=== PATIENT | male | born 1990 | race Caucasian/White ===

== ENCOUNTER 2018-09-15 23:52 | Emergency (ER) | payer MEDICAID, SELFPAY ==
[2018-09-15 23:55] VITALS: BP 133/82; PULSE 92; RESP 20; TEMP 36.8; O2SAT 95
--- NOTE | 2018-09-16 00:04 | W.ED.GENAD ---
Discharge Plan Disposition Patient Disposition: HOME Condition: Improving Discharge Details Chief Complaint: GI Bleed Clinical Impression: Acute bronchitis Reason For Visit: LACI Primary Care Provider: Andrei Arana ED Provider: Vaibhav Orozco Home Meds and New Rx's Prescriptions: New sulfamethoxazole-trimethoprim [Bactrim DS] 800-160 mg tablet 160 mg PO BID 7 Days Qty: 14 RF: 0 No Action methylphenidate HCl [Ritalin] 20 MG tablet 20 mg PO BID RF: 0 ibuprofen 600 MG tablet 600 mg PO Q6H PRN (Reason: Pain) Qty: 20 RF: 0 methylphenidate HCl 10 mg Tablet 10 mg PO HS RF: 0 Discharge Instructions Instructions: Acute Bronchitis (ED) Additional Instructions: Home to rest tonight. Begin antibiotic prescription tomorrow morning, you are given a first dose tonight. May use Zofran, if needed for nausea. Small, frequent sips of fluids to maintain hydration Return to the emergency room for any acute concerns. Continue your efforts to decrease use of cigarettes Medical Decision Making 19-year-old male with 2 weeks of generalized malaise and cough with congestion. He had episode of posttussive emesis with bloody tinged sputum this evening which prompted a call to 911 and transport via EMS. He arrives afebrile, with normal oxygenation, note of high resting pulse but otherwise exam is notable for right-sided rhonchi. Differential diagnosis in this young man includes influenza type illness, bronchitis, pneumonia. CBC review reveals a white blood cell count of 7, hematocrit 44, platelets 246. Chemistries unremarkable. Chest x-ray without focal infiltrate. Given the patient's ongoing abuse of tobacco, I elected to treat him with a course of Bactrim for acute bronchitis. He stable and improved, appropriate for discharge to home Lab Data Lab results reviewed: Yes I reviewed the patient's lab results. Laboratory Tests Range/Units 09/16/18 09/16/18 00:10 00:10 WBC (4.4-10.8) k/cumm 7.11 RBC (4.50-6.00) m/cumm 5.23 Hgb (13.5-17.5) g/dL 16.0 Hct (40.0-50.0) % 44.6 MCV (80-95) fL 85.3 MCH (27.0-33.0) pg 30.6 MCHC (32.0-36.0) g/dL 35.9 RDW (11.8-14.1) % 12.3 Plt Count (130-400) x1000/uL 246 MPV (8.0-11.0) fL 9.3 Immature Gran % 0.1 Neutrophils % 51.1 Lymphocytes % 29.0 Monocytes % 13.8 Eosinophils % 5.6 Basophils % 0.4 Absolute Neutrophils (1.2-6.7) k/cumm 3.63 Absolute Lymphocytes (1.2-3.4) k/cumm 2.06 Absolute Monocytes (0.11-0.7) k/cumm 0.98 H Absolute Eosinophils (0.0-0.7) k/cumm 0.40 Absolute Basophils (0.0-0.2) k/cumm 0.03 Sodium (136-145) mmol/L 138 Potassium (3.5-5.1) mmol/L 3.2 L Chloride (98-107) mmol/L 102 Carbon Dioxide (21.0-32.0) mmol/L 27.4 Anion Gap (3-11) mmol/L 8.6 BUN (7-18) mg/dL 13 Creatinine (0.70-1.30) mg/dL 0.89 Estimated GFR/1.73 m2 (mL/min/1.73m2) >= 60.00 Glucose (70-100) mg/dL 110 H Calcium (8.5-10.1) mg/dL 8.8 HPI General Mode of arrival: ambulatory. Date/Time Provider Initiated Documentation: 09/15/18 23:57. Limitations to Documentation: no limitations. Information obtained by: patient and EMS. History of Present Illness 27 year old M presents to the emergency department with the chief complaint of Cough, congestion, malaise, vomiting, described as moderate, Quality is described as dull and constant, and is localized to the chest. Patient reports no radiation. Patient started experiencing this day(s) and it has been constant. No relieving factors improve symptom(s), No exacerbating factors reported . Patient notes cough, diaphoresis, fever/chills, loss of appetite, malaise and nausea/vomiting; denies chest pain. HPI Narrative: 27-year-old male smoker presents from home with approximately 2 weeks of generalized malaise with associated cough, congestion, production of sputum. Tonight , he says he spit out of bloody mucus. He denies any persistent vomiting. Is not had abdominal pain. No dark or bloody stool. Related Data Home Medications Medication Instructions Recorded Confirmed ibuprofen 600 mg PO Q6H PRN #20 tab 11/08/17 09/15/18 methylphenidate HCl [Ritalin] 20 mg PO BID 11/08/17 09/15/18 methylphenidate HCl 10 mg PO HS 09/15/18 09/15/18 sulfamethoxazole-trimethoprim 160 mg PO BID 7 Days #14 tab 09/16/18 [Bactrim DS] Previous Rx's Medication Instructions Recorded ibuprofen 600 mg PO Q6H PRN #20 tab 11/08/17 sulfamethoxazole-trimethoprim 160 mg PO BID 7 Days #14 tab 09/16/18 [Bactrim DS] Allergies Allergy/AdvReac Type Severity Reaction Status Date / Time clindamycin Allergy Unknown Unverified 09/15/18 23:58 Penicillins Allergy Unverified 09/15/18 23:58 General Stated Complaint: GI Bleed LIANNA: 3 Review of Systems Review of Systems 8 systems reviewed and otherwise negative PFS Social History Smoking/Tobacco Use Status: Current every day Exam Narrative Exam Narrative: GEN: awake, alert, oriented 3. Pleasant, well groomed, interactive. HEAD: Normocephalic, atraumatic ENT: Mucous membranes moist, oropharynx unremarkable, External ear exam unremarkable EYES: PERRL, EOMI NECK: Full ROM, no ANTONIETA, no menigismus CHEST/RESP: Nontender, right upper posterior chest with few rhonchi, no wheeze/rales CARDIOVASCULAR: RRR, no murmur, rub ar. 2+ Rad pulse bilateral ABDOMEN: Soft, nontender, no mass. +Bowel sounds EXT: Full ROM, no edema, no rash Neuro: Grossly normal neurologic exam, conversant, interactive. Psych: Speech fluent, thoughts congruent, affect normal Course Vital Signs Temperature 36.8 C 09/15/18 23:55 Pulse 92 H 09/15/18 23:55 Respiratory Rate 20 09/15/18 23:55 Blood Pressure 133/82 09/15/18 23:55 Pulse Oximetry 95 09/15/18 23:55 Temperature 36.8 C 09/15/18 23:55 Temperature Source Temporal Artery Scan 09/15/18 23:55 Pulse 92 H 09/15/18 23:55 Respiratory Rate 20 09/15/18 23:55 Respiratory Effort Non-Labored 09/15/18 23:55 Blood Pressure 133/82 09/15/18 23:55 Blood Pressure Position Sitting 09/15/18 23:55 Pulse Oximetry 95 09/15/18 23:55 Oxygen Delivery Method Room Air 09/15/18 23:55 Oxygen Flow Rate 0 09/15/18 23:55 Pain Level 0 09/15/18 23:59
--- NOTE | 2018-09-16 00:07 | ED.GENADUL_ITS ---
Discharge Plan Disposition Patient Disposition: HOME Condition: Improving Discharge Details Chief Complaint: GI Bleed Clinical Impression: Acute bronchitis Reason For Visit: LACI Primary Care Provider: Andrei Arana ED Provider: Vaibhav Orozco Home Meds and New Rx's Prescriptions: New sulfamethoxazole-trimethoprim [Bactrim DS] 800-160 mg tablet 160 mg PO BID 7 Days Qty: 14 RF: 0 No Action methylphenidate HCl [Ritalin] 20 MG tablet 20 mg PO BID RF: 0 ibuprofen 600 MG tablet 600 mg PO Q6H PRN (Reason: Pain) Qty: 20 RF: 0 methylphenidate HCl 10 mg Tablet 10 mg PO HS RF: 0 Discharge Instructions Instructions: Acute Bronchitis (ED) Additional Instructions: Home to rest tonight. Begin antibiotic prescription tomorrow morning, you are given a first dose tonight. May use Zofran, if needed for nausea. Small, frequent sips of fluids to maintain hydration Return to the emergency room for any acute concerns. Continue your efforts to decrease use of cigarettes Medical Decision Making 19-year-old male with 2 weeks of generalized malaise and cough with congestion. He had episode of posttussive emesis with bloody tinged sputum this evening which prompted a call to 911 and transport via EMS. He arrives afebrile, with normal oxygenation, note of high resting pulse but otherwise exam is notable for right-sided rhonchi. Differential diagnosis in this young man includes influenza type illness, bronchitis, pneumonia. CBC review reveals a white blood cell count of 7, hematocrit 44, platelets 246. Chemistries unremarkable. Chest x-ray without focal infiltrate. Given the patient's ongoing abuse of tobacco, I elected to treat him with a course of Bactrim for acute bronchitis. He stable and improved, appropriate for discharge to home Lab Data Lab results reviewed: Yes I reviewed the patient's lab results. Laboratory Tests Range/Units 09/16/18 09/16/18 00:10 00:10 WBC (4.4-10.8) k/cumm 7.11 RBC (4.50-6.00) m/cumm 5.23 Hgb (13.5-17.5) g/dL 16.0 Hct (40.0-50.0) % 44.6 MCV (80-95) fL 85.3 MCH (27.0-33.0) pg 30.6 MCHC (32.0-36.0) g/dL 35.9 RDW (11.8-14.1) % 12.3 Plt Count (130-400) x1000/uL 246 MPV (8.0-11.0) fL 9.3 Immature Gran % 0.1 Neutrophils % 51.1 Lymphocytes % 29.0 Monocytes % 13.8 Eosinophils % 5.6 Basophils % 0.4 Absolute Neutrophils (1.2-6.7) k/cumm 3.63 Absolute Lymphocytes (1.2-3.4) k/cumm 2.06 Absolute Monocytes (0.11-0.7) k/cumm 0.98 H Absolute Eosinophils (0.0-0.7) k/cumm 0.40 Absolute Basophils (0.0-0.2) k/cumm 0.03 Sodium (136-145) mmol/L 138 Potassium (3.5-5.1) mmol/L 3.2 L Chloride (98-107) mmol/L 102 Carbon Dioxide (21.0-32.0) mmol/L 27.4 Anion Gap (3-11) mmol/L 8.6 BUN (7-18) mg/dL 13 Creatinine (0.70-1.30) mg/dL 0.89 Estimated GFR/1.73 m2 (mL/min/1.73m2) >= 60.00 Glucose (70-100) mg/dL 110 H Calcium (8.5-10.1) mg/dL 8.8 HPI General Mode of arrival: ambulatory . Date/Time Provider Initiated Documentation: 09/15/18 23:57 . Limitations to Documentation: no limitations . Information obtained by: patient and EMS . History of Present Illness 27 year old M presents to the emergency department with the chief complaint of Cough, congestion, malaise, vomiting, described as moderate, Quality is described as dull and constant, and is localized to the chest. Patient reports no radiation. Patient started experiencing this day(s) and it has been constant. No relieving factors improve symptom(s), No exacerbating factors reported . Patient notes cough, diaphoresis, fever/chills, loss of appetite, malaise and nausea/vomiting; denies chest pain. HPI Narrative: 27-year-old male smoker presents from home with approximately 2 weeks of generalized malaise with associated cough, congestion, production of sputum. Tonight , he says he spit out of bloody mucus. He denies any persistent vomiting. Is not had abdominal pain. No dark or bloody stool. Related Data Home Medications Medication Instructions Recorded Confirmed ibuprofen 600 mg PO Q6H PRN #20 tab 11/08/17 09/15/18 methylphenidate HCl [Ritalin] 20 mg PO BID 11/08/17 09/15/18 methylphenidate HCl 10 mg PO HS 09/15/18 09/15/18 sulfamethoxazole-trimethoprim 160 mg PO BID 7 Days #14 tab 09/16/18 [Bactrim DS] Previous Rx's Medication Instructions Recorded ibuprofen 600 mg PO Q6H PRN #20 tab 11/08/17 sulfamethoxazole-trimethoprim 160 mg PO BID 7 Days #14 tab 09/16/18 [Bactrim DS] Allergies Allergy/AdvReac Type Severity Reaction Status Date / Time clindamycin Allergy Unknown Unverified 09/15/18 23:58 Penicillins Allergy Unverified 09/15/18 23:58 General Stated Complaint: GI Bleed LIANNA: 3 Review of Systems Review of Systems 8 systems reviewed and otherwise negative PFS Social History Smoking/Tobacco Use Status: Current every day Exam Narrative Exam Narrative: GEN: awake, alert, oriented 3. Pleasant, well groomed, interactive. HEAD: Normocephalic, atraumatic ENT: Mucous membranes moist, oropharynx unremarkable, External ear exam unremarkable EYES: PERRL, EOMI NECK: Full ROM, no ANTONIETA, no menigismus CHEST/RESP: Nontender, right upper posterior chest with few rhonchi, no wheeze/ rales CARDIOVASCULAR: RRR, no murmur, rub ar. 2+ Rad pulse bilateral ABDOMEN: Soft, nontender, no mass. +Bowel sounds EXT: Full ROM, no edema, no rash Neuro: Grossly normal neurologic exam, conversant, interactive. Psych: Speech fluent, thoughts congruent, affect normal Course Vital Signs Temperature 36.8 C 09/15/18 23:55 Pulse 92 H 09/15/18 23:55 Respiratory Rate 20 09/15/18 23:55 Blood Pressure 133/82 09/15/18 23:55 Pulse Oximetry 95 09/15/18 23:55 Temperature 36.8 C 09/15/18 23:55 Temperature Source Temporal Artery Scan 09/15/18 23:55 Pulse 92 H 09/15/18 23:55 Respiratory Rate 20 09/15/18 23:55 Respiratory Effort Non-Labored 09/15/18 23:55 Blood Pressure 133/82 09/15/18 23:55 Blood Pressure Position Sitting 09/15/18 23:55 Pulse Oximetry 95 09/15/18 23:55 Oxygen Delivery Method Room Air 09/15/18 23:55 Oxygen Flow Rate 0 09/15/18 23:55 Pain Level 0 09/15/18 23:59
[2018-09-16 00:17] LABS: Abs Immature Grans 0.01 k/cumm (0.0-0.09); Absolute Basophil Count 0.03 k/cumm (0.0-0.2); Absolute Lymphocyte Count 2.06 k/cumm (1.2-3.4); Absolute Monocyte Count 0.98 k/cumm (0.11-0.7); Absolute Neutrophil Count 3.63 k/cumm (1.2-6.7); Basophils % 0.4; Eosinophils % 5.6; HCT 44.6 % (40.0-50.0); Immature Grans % 0.1; Mean Corp. HGB Concentration 35.9 g/dL (32.0-36.0); Mean Corpuscular Hemoglobin 30.6 pg (27.0-33.0); Mean Corpuscular Volume 85.3 fL (80-95); Mean Platelet Volume 9.3 fL (8.0-11.0); Monocytes % 13.8; Neutrophils % 51.1; Platelet Count 246 x1000/uL (130-400); RBC 5.23 m/cumm (4.50-6.00); RBC Distribution Width 12.3 % (11.8-14.1); White Blood Cell Count 7.11 k/cumm (4.4-10.8)
[2018-09-16] MEDS: Ketorolac 30 MG/ML VIAL IVP (00:17)
[2018-09-16] MEDS: Ondansetron 4 MG/2 ML VIAL IVP (00:17)
[2018-09-16] MEDS: Normal Saline 1,000 ML 1000 ML IV (00:17)
[2018-09-16 00:25] LABS: Anion Gap 8.6 mmol/L (3-11); BUN 13 mg/dL (7-18); CO2 27.4 mmol/L (21.0-32.0); CREATININE 0.89 mg/dL (0.70-1.30); Calcium 8.8 mg/dL (8.5-10.1); Chloride 102 mmol/L (98-107); Glucose 110 mg/dL (70-100); Potassium 3.2 mmol/L (3.5-5.1); Sodium 138 mmol/L (136-145)
--- NOTE | 2018-09-16 00:45 | DI.RAD_ITS ---
SYMPTOMS/DIAGNOSIS: COUGH FOR A FEW DAYS PA AND LATERAL CHEST: The heart is normal in size. The lungs are clear. The mediastinal structures and pleura appear intact. SUMMARY: Normal chest.
--- NOTE | 2018-09-16 01:11 | DI.VRAD_ITS ---
EXAM: XR Chest, 2 Views EXAM DATE/TIME: 09/16/2018 12:04 AM CLINICAL HISTORY: 27 years old, male; Signs and symptoms; Cough and other: Congestion TECHNIQUE: XR of the chest, 2 views. COMPARISON: No relevant prior studies available. FINDINGS: There are no old studies available for comparison. The lungs are clear of infiltrate. There are no pleural effusions or pneumothorax. The heart size and pulmonary vascularity are normal. IMPRESSION: No active disease. Dictated and Authenticated by: Kayden Mojica MD. Ordering:AMY DAN MD
[2018-09-16 06:38] VITALS: BP 133/82; PULSE 92; RESP 20; TEMP 36.8; O2SAT 95
== END 2018-09-16 01:20 | disposition home or self-care (01) ==
LOC: ER 09-16 01:23
PROVIDERS: Emergency Provider Emergency Medicine; PCP General Practice
DX: J20.9 Acute bronchitis, unspecified (principal)
CPT/HCPCS: 36415; 80048; 96374; 96375; 99284; 71046; 85025; J1885; J2405

== ENCOUNTER 2018-09-29 15:38 | Emergency (ER) | payer MEDICAID, SELFPAY ==
[2018-09-29 15:44] VITALS: BP 149/79; PULSE 82; RESP 18; TEMP 36.6; O2SAT 97
--- NOTE | 2018-09-29 15:45 | DI.RAD_ITS ---
SYMPTOM/DIAGNOSIS: LATERAL PAIN, FOOT PAIN. CAUGHT BY CHAIN RIGHT ANKLE: 09/29/18 Three views obtained. There is soft tissue swelling particularly adjacent to the lateral malleolus. The ankle mortise appears well maintained. No acute fracture seen.
--- NOTE | 2018-09-29 15:46 | W.ED.GENAD ---
Discharge Plan Disposition Patient Disposition: HOME Condition: Improving Discharge Details Chief Complaint: Orthopedic Clinical Impression: Contusion of ankle, right Reason For Visit: right ankle pain Primary Care Provider: Andrei Arana ED Provider: Vaibhav Orozco Home Meds and New Rx's Prescriptions: New hydrocodone-acetaminophen 5-325 mg tablet 1 tab PO Q6H PRN (Reason: pain, severe) Qty: 2 RF: 0 Continue methylphenidate HCl [Ritalin] 20 MG tablet 20 mg PO BID RF: 0 ibuprofen 600 MG tablet 600 mg PO Q6H PRN (Reason: Pain) Qty: 20 RF: 0 methylphenidate HCl 10 mg Tablet 10 mg PO HS RF: 0 Discharge Instructions Instructions: Contusion in Adults (ED) Additional Instructions: Please wear crutches and walking boot as needed, as discussed for 3-7 days time. If after 1 week you have persistent pain, please call the orthopedic office at [phone] for a follow-up appointment. Elevate leg above the level of the heart to reduce pain and swelling. Ibuprofen 800 mg every 6-8 hours as needed for pain. Take with food. May use the prescribed hydrocodone as needed for severe, breakthrough pain. Return to the emerge department for any acute concerns Medical Decision Making 19-year-old male presents with right ankle and foot pain and swelling after the R leg was caught with chain in the back of his truck. He did not suffer any other injury. Denies Knee/Hip/Back/Chest pain. Referred for XRay which reveals soft tissue swelling but no underlying bony inury. Consistent with sft tissue contusion/sprain. Will place in immobilization with crutches for prn use anticipated 5-7 days. If he has persistent pain, may consider followup with Orthopedics. HPI General Mode of arrival: wheelchair. Date/Time Provider Initiated Documentation: 09/29/18 15:39. Limitations to Documentation: no limitations. Information obtained by: patient. History of Present Illness 27 year old M presents to the emergency department with the chief complaint of Right ankle and foot pain, described as moderate, Quality is described as aching, and is localized to the right and lower extremity. Patient reports no radiation. Patient started experiencing this minute(s) and it has been constant. Cold therapy improves symptom(s), and Immobilization improves symptom(s), Movement worsens symptoms . Patient notes no other symptoms.. 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 He was not injured in any other way but reports the abrupt onset of right ankle and foot pain and swelling. No other injury Related Data Home Medications Medication Instructions Recorded Confirmed ibuprofen 600 mg PO Q6H PRN #20 tab 11/08/17 09/29/18 methylphenidate HCl [Ritalin] 20 mg PO BID 11/08/17 09/29/18 methylphenidate HCl 10 mg PO HS 09/15/18 09/15/18 hydrocodone-acetaminophen 1 tab PO Q6H PRN #2 tab 09/29/18 Previous Rx's Medication Instructions Recorded ibuprofen 600 mg PO Q6H PRN #20 tab 11/08/17 hydrocodone-acetaminophen 1 tab PO Q6H PRN #2 tab 09/29/18 Allergies Allergy/AdvReac Type Severity Reaction Status Date / Time clindamycin Allergy Unknown Unverified 09/29/18 15:48 Penicillins Allergy Unverified 09/29/18 15:48 General LIANNA: 3 Review of Systems Review of Systems 4 systems reviewed and otherwise negative Exam Narrative Exam Narrative: GEN: awake, alert, oriented 3. Pleasant, well groomed, interactive. HEAD: Normocephalic, atraumatic ENT: Mucous membranes moist, oropharynx unremarkable, External ear exam unremarkable EYES: PERRL, EOMI NECK: Full ROM, no ANTONIETA, no menigismus CHEST/RESP: Nontender, clear to auscultation bilateral, no wheeze/rhonchi/rales CARDIOVASCULAR: RRR, no murmur, rub ar. 2+ Rad pulse bilateral EXT: Motor is 5 out of 5 bilaterally. There is right lateral malleoli or tenderness to palp and swelling on exam. 2+ DP bilaterally. Sensation intact throughout Neuro: Grossly normal neurologic exam, conversant, interactive. Psych: Speech fluent, thoughts congruent, affect mildly anxious
[2018-09-29] MEDS: Ibuprofen 800 MG TAB PO (15:50)
--- NOTE | 2018-09-29 15:50 | ED.GENADUL_ITS ---
Discharge Plan Disposition Patient Disposition: HOME Condition: Improving Discharge Details Chief Complaint: Orthopedic Clinical Impression: Contusion of ankle, right Reason For Visit: right ankle pain Primary Care Provider: Andrei Arana ED Provider: Vaibhav Orozco Home Meds and New Rx's Prescriptions: New hydrocodone-acetaminophen 5-325 mg tablet 1 tab PO Q6H PRN (Reason: pain, severe) Qty: 2 RF: 0 Continue methylphenidate HCl [Ritalin] 20 MG tablet 20 mg PO BID RF: 0 ibuprofen 600 MG tablet 600 mg PO Q6H PRN (Reason: Pain) Qty: 20 RF: 0 methylphenidate HCl 10 mg Tablet 10 mg PO HS RF: 0 Discharge Instructions Instructions: Contusion in Adults (ED) Additional Instructions: Please wear crutches and walking boot as needed, as discussed for 3-7 days time. If after 1 week you have persistent pain, please call the orthopedic office at [phone] for a follow-up appointment. Elevate leg above the level of the heart to reduce pain and swelling. Ibuprofen 800 mg every 6-8 hours as needed for pain. Take with food. May use the prescribed hydrocodone as needed for severe, breakthrough pain. Return to the emerge department for any acute concerns Medical Decision Making 19-year-old male presents with right ankle and foot pain and swelling after the R leg was caught with chain in the back of his truck. He did not suffer any other injury. Denies Knee/Hip/Back/Chest pain. Referred for XRay which reveals soft tissue swelling but no underlying bony inury. Consistent with sft tissue contusion/sprain. Will place in immobilization with crutches for prn use anticipated 5-7 days. If he has persistent pain, may consider followup with Orthopedics. HPI General Mode of arrival: wheelchair . Date/Time Provider Initiated Documentation: 09/29/18 15:39 . Limitations to Documentation: no limitations . Information obtained by: patient . History of Present Illness 27 year old M presents to the emergency department with the chief complaint of Right ankle and foot pain, described as moderate, Quality is described as aching, and is localized to the right and lower extremity. Patient reports no radiation. Patient started experiencing this minute(s) and it has been constant. Cold therapy improves symptom(s), and Immobilization improves symptom(s), Movement worsens symptoms . Patient notes no other symptoms.. 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 He was not injured in any other way but reports the abrupt onset of right ankle and foot pain and swelling. No other injury Related Data Home Medications Medication Instructions Recorded Confirmed ibuprofen 600 mg PO Q6H PRN #20 tab 11/08/17 09/29/18 methylphenidate HCl [Ritalin] 20 mg PO BID 11/08/17 09/29/18 methylphenidate HCl 10 mg PO HS 09/15/18 09/15/18 hydrocodone-acetaminophen 1 tab PO Q6H PRN #2 tab 09/29/18 Previous Rx's Medication Instructions Recorded ibuprofen 600 mg PO Q6H PRN #20 tab 11/08/17 hydrocodone-acetaminophen 1 tab PO Q6H PRN #2 tab 09/29/18 Allergies Allergy/AdvReac Type Severity Reaction Status Date / Time clindamycin Allergy Unknown Unverified 09/29/18 15:48 Penicillins Allergy Unverified 09/29/18 15:48 General LIANNA: 3 Review of Systems Review of Systems 4 systems reviewed and otherwise negative Exam Narrative Exam Narrative: GEN: awake, alert, oriented 3. Pleasant, well groomed, interactive. HEAD: Normocephalic, atraumatic ENT: Mucous membranes moist, oropharynx unremarkable, External ear exam unremarkable EYES: PERRL, EOMI NECK: Full ROM, no ANTONIETA, no menigismus CHEST/RESP: Nontender, clear to auscultation bilateral, no wheeze/rhonchi/rales CARDIOVASCULAR: RRR, no murmur, rub ar. 2+ Rad pulse bilateral EXT: Motor is 5 out of 5 bilaterally. There is right lateral malleoli or tenderness to palp and swelling on exam. 2+ DP bilaterally. Sensation intact throughout Neuro: Grossly normal neurologic exam, conversant, interactive. Psych: Speech fluent, thoughts congruent, affect mildly anxious
[2018-09-29] MEDS: HYDROcodone 5/Acetaminophen 325 TAB PO (16:18)
--- NOTE | 2018-09-29 16:26 | DI.VRAD_ITS ---
EXAM: XR Right Ankle Complete, 3 or more Views EXAM DATE/TIME: 09/29/2018 3:46 PM CLINICAL HISTORY: 27 years old, male; Pain; Ankle; Right; Patient HX: Lateral ankle pain, caught in chain TECHNIQUE: XR Right ankle 3 or more views. COMPARISON: CT RIGHT LOWER EXTREM WO CONTRAST 11/08/2017 12:01 PM FINDINGS: Bones/joints: Normal. No fracture or subluxation. Soft tissues: Soft tissue swelling is present especially laterally and anteriorly. IMPRESSION: No acute osseous findings. Dictated and Authenticated by: Aj Cruz MD. Ordering:AMY DAN MD
--- NOTE | 2018-09-29 16:40 | NUR.NOTE ---
Provider is at the bedside.
--- NOTE | 2018-09-29 17:14 | NUR.NOTE ---
Pt. signed opiod consent form prior to discharge.
== END 2018-09-29 17:10 | disposition home or self-care (01) ==
LOC: ER 17:15
PROVIDERS: Emergency Provider Emergency Medicine; PCP General Practice
DX: S90.01XA Contusion of right ankle, initial encounter (principal); V58.4XXA Person boarding or alighting a pick-up truck or van injured in noncollision transport accident, initial encounter
CPT/HCPCS: 29515; 99283; 73610; E0114; L4361

== ENCOUNTER 2022-02-08 03:15 | Emergency (ER) | payer MEDICARE, MEDICAID, SELFPAY ==
[2022-02-08 03:22] VITALS: BP 129/73; PULSE 67; RESP 18; TEMP 36.5; O2SAT 98
--- NOTE | 2022-02-08 03:41 | ED.GENADUL_ITS ---
Discharge Plan Disposition Patient Disposition: HOME Condition: Improving Discharge Details Clinical Impression: Opioid abuse Primary Care Provider: Artem Medel ED Provider: Kishan Meyer Home Meds and New Rx's Prescriptions: New clonidine HCl 0.1 mg tablet 0.1 mg PO BID PRN (Reason: opioid withdrawal) Qty: 4 0RF ondansetron HCl 4 mg tablet 4 mg PO BID PRN (Reason: nausea and vomiting) Qty: 4 0RF No Action methylphenidate HCl [Ritalin] 20 MG tablet 20 mg PO BID 0RF ibuprofen 600 MG tablet 600 mg PO Q6H PRN (Reason: Pain) Qty: 20 0RF methylphenidate HCl 10 mg Tablet 10 mg PO HS 0RF hydrocodone-acetaminophen 5-325 mg tablet 1 tab PO Q6H PRN (Reason: pain, severe) Qty: 2 0RF Discharge Instructions Instructions: Narcotic Withdrawal (ED) Additional Instructions: Please follow-up with your primary care. Take medications as prescribed. Medical Decision Making 31-year-old male history of opioid abuse present endorsing sweats chills body aches and nausea in the setting of using heroin 9 hours ago. Believes she is in withdrawal. Patient's vital signs are normal. No tachycardia no hypertension. Patient appears moderately uncomfortable is having dry heaves and chills. Consider early opiate withdrawal. Lower suspicion for bacterial infection or viral illness or electrolyte abnormality or traumatic injury. Trial of clonidine Zofran and Ativan. Patient will be discharged home his family numbers here to pick him up. Resting comfortably no acute distress. Vital signs stable. HPI General Date/Time Provider Initiated Documentation: 02/08/22 03:34 . HPI Narrative: 31-year-old male history of opiate abuse presents with nausea and shivers in the setting of using heroin 9 hours ago, believes he is in withdrawal. Related Data Home Medications Medication Instructions Recorded Confirmed ibuprofen 600 mg tablet 600 mg PO Q6H PRN #20 tab 11/08/17 09/29/18 methylphenidate HCl 20 mg tablet 20 mg PO BID 11/08/17 09/29/18 (Ritalin) methylphenidate HCl 10 mg tablet 10 mg PO HS 09/15/18 09/15/18 hydrocodone 5 mg-acetaminophen 325 1 tab PO Q6H PRN #2 tab 09/29/18 mg tablet clonidine HCl 0.1 mg tablet 0.1 mg PO BID PRN #4 tab 02/08/22 ondansetron HCl 4 mg tablet 4 mg PO BID PRN #4 tab 02/08/22 Previous Rx's Medication Instructions Recorded ibuprofen 600 mg tablet 600 mg PO Q6H PRN #20 tab 11/08/17 hydrocodone 5 mg-acetaminophen 325 1 tab PO Q6H PRN #2 tab 09/29/18 mg tablet clonidine HCl 0.1 mg tablet 0.1 mg PO BID PRN #4 tab 02/08/22 ondansetron HCl 4 mg tablet 4 mg PO BID PRN #4 tab 02/08/22 Allergies Allergy/AdvReac Type Severity Reaction Status Date / Time clindamycin Allergy Unknown Unverified 09/29/18 15:48 Penicillins Allergy Unverified 09/29/18 15:48 General Stated Complaint: DrugWithdr/MAT LIANNA: 3 Review of Systems Narrative: Review of Systems Constitutional: Body aches Eyes: negative ENT: negative Cardiovascular: negative Respiratory: negative Gastrointestinal: Nausea : negative Musculoskeletal: negative Skin: negative Neurologic: negative Psych: negative PFSH All Active Problems (Updated 02/08/22 @ 04:03 by Kishan Meyer MD) Opioid abuse (Acute) Social History Smoking/Tobacco Use Status: Current every day Smoking risk assessment performed?: Yes Alcohol Intake: never Drug use: Daily Substance use type: heroin Do you feel safe at home: Yes Do you feel safe in your relationship?: Yes Exam Narrative Exam Narrative: Physical Examination General: alert, awake, cooperative, resting comfortably, no acute distress HEENT: normocephalic, atraumatic; PERRL, EOM intact, conjunctiva normal; no nasal discharge; moist mucous membranes, oral and pharyngeal mucosa normal, tolerating secretions Neck: supple, trachea midline; full ROM Chest: normal to inspection Respiratory: normal respiratory effort, speaking in full sentences, clear to auscultation, no wheezing, rales or rhonchi Cardiac: regular rate, regular rhythm, S1S2 intact, no murmurs rubs or gallops GI: abdomen soft, non-tender, non-distended; no palpable mass or hepatosplenomegaly Skin: no lesions, rashes or trauma appreciated Neuro: AAOx3, normal speech, moving all extremities Psych: Appropriate mood and affect Course Vital Signs Vital signs: Vital Signs Temperature 36.5 C 02/08/22 03:22 Pulse 67 02/08/22 03:22 Respiratory Rate 18 02/08/22 03:22 Blood Pressure 129/73 02/08/22 03:22 Pulse Oximetry 98 02/08/22 03:22 Temperature 36.5 C 02/08/22 03:22 Temperature Source Tympanic 02/08/22 03:22 Pulse 67 02/08/22 03:22 Respiratory Rate 18 02/08/22 03:22 Respiratory Effort 02/08/22 03:24 Respiratory Pattern Normal 02/08/22 03:25 Blood Pressure 129/73 02/08/22 03:22 Blood Pressure Position Supine 02/08/22 03:22 Pulse Oximetry 98 02/08/22 03:22 Oxygen Delivery Method Room Air 02/08/22 03:22 Oxygen Flow Rate 0 02/08/22 03:22 Pain Level 10 02/08/22 03:22
--- NOTE | 2022-02-08 09:22 | NUR.NOTE ---
Called rx ordered by Dr. Meyer into [facility] in [place] and made mother, Karuna aware of this.
== END 2022-02-08 04:09 | disposition home or self-care (01) ==
PROVIDERS: Emergency Provider Emergency Medicine; PCP Physician Assistant
DX: F11.10 Opioid abuse, uncomplicated (principal); R11.2 Nausea with vomiting, unspecified; R68.83 Chills (without fever); M79.10 Myalgia, unspecified site
CPT/HCPCS: 99283

== ENCOUNTER → 2022-05-04 17:54 | Emergency (ER) | payer MEDICARE, MEDICAID, SELFPAY | END | disposition LWBS | LOC: ER 05-07 12:00 | PROVIDERS: PCP Physician Assistant | DX: Z53.21 Procedure and treatment not carried out due to patient leaving prior to being seen by health care provider (principal) ==

== ENCOUNTER 2023-08-04 03:46 | Outpatient (CLI) | payer MEDICARE, MEDICAID, SELFPAY ==
[2023-08-04 17:44] LABS: *AMPHETAMINES SCREEN URINE Negative (Negative); *BARBITURATES SCREEN URINE Negative (Negative); *BENZODIAZEPINES SCREEN URINE Negative (Negative); Cannabinoids THC Negative (Negative); Cocaine Screen,Urine Negative (Negative); METHADONE URINE SCREEN Negative (Negative); OPIATES URINE SCREEN Negative (Negative)
[2023-08-04 17:46] LABS: Tricyclic Antidepressants Negative (Negative)
[2023-08-06 14:56] LABS: Xylazine, Confirmation Urine Negative ng/mL (<50)
[2023-08-09 01:58] LABS: Buprenorphine 369.5 ng/mL (Cutoff: 5.0)
[2023-08-12 04:19] LABS: EDDP-by GC-MS Negative ng/mL (Cutoff: 100); Methadone Interpretation Negative.; Methadone-by GC-MS Negative ng/mL (Cutoff: 100)
[2023-08-14 19:51] LABS: Norfentanyl by LC-MS/MS Not Detected
== END 2023-08-04 03:47 | disposition home or self-care (01) ==
LOC: LBO 03:46
PROVIDERS: PCP Physician Assistant; Visit Provider Nurse Practitioner Psychiatric/Mental Health
DX: F11.20 Opioid dependence, uncomplicated (principal); Z79.899 Other long term (current) drug therapy; R82.5 Elevated urine levels of drugs, medicaments and biological substances
CPT/HCPCS: 80307; 80348; 80375; 80354; 80358

== ENCOUNTER 2023-09-03 16:11 | Outpatient (REF) | payer MEDICARE, MEDICAID, SELFPAY ==
[2023-09-03 20:05] LABS: *AMPHETAMINES SCREEN URINE Negative (Negative); *BARBITURATES SCREEN URINE Negative (Negative); *BENZODIAZEPINES SCREEN URINE Negative (Negative); Cannabinoids THC Negative (Negative); Cocaine Screen,Urine Negative (Negative); METHADONE URINE SCREEN Negative (Negative); OPIATES URINE SCREEN Negative (Negative)
[2023-09-03 20:06] LABS: Tricyclic Antidepressants Negative (Negative)
[2023-09-08 07:34] LABS: Xylazine, Confirmation Urine Negative ng/mL (<50)
[2023-09-08 10:58] LABS: Methylphenidate 949 ng/mL (Cutoff: 10)
[2023-09-09 10:49] LABS: Buprenorphine 690.7 ng/mL (Cutoff: 5.0)
[2023-09-09 14:46] LABS: Fentanyl Interpretation Negative.; Fentanyl by LC-MS/MS Not Detected; Norfentanyl by LC-MS/MS Not Detected
== END 2023-09-03 16:12 | disposition home or self-care (01) ==
LOC: LBN 16:11
PROVIDERS: PCP Physician Assistant; Visit Provider Nurse Practitioner Psychiatric/Mental Health
DX: F11.20 Opioid dependence, uncomplicated (principal); Z79.899 Other long term (current) drug therapy
CPT/HCPCS: 80307; 80348; 80360; 80375; 80354

== ENCOUNTER 2023-09-24 18:09 | Emergency (ER) | payer MEDICARE, MEDICAID, SELFPAY ==
[2023-09-24 18:18] VITALS: BP 126/107; PULSE 108; RESP 22; TEMP 36.6; O2SAT 96
[2023-09-24] MEDS: Acetaminophen 500 MG TAB 1000 MG PO (19:59)
[2023-09-24 20:01] LABS: Abs Immature Grans 0.03 10^3/uL (0.0-0.06); Absolute Basophil Count 0.07 10^3/uL (0.0-0.2); Absolute Eosinophil Count 0.14 10^3/uL (0.0-0.7); Absolute Lymphocyte Count 1.46 10^3/uL (1.2-3.4); Absolute Monocyte Count 0.78 10^3/uL (0.1-0.8); Absolute Neutrophil Count 6.94 10^3/uL (1.2-6.7); Basophils % 0.7; Eosinophils % 1.5; HCT 47.2 % (40.0-50.0); HGB 16.4 g/dL (13.5-17.5); Immature Grans % 0.3; Lymphocytes % 15.5; MCH 29.2 pg (27.0-33.0); MCHC 34.7 % (32.0-36.0); MCV 84 fL (80-95); MPV 9.6 fL (8.0-11.0); Monocytes % 8.3; Neutrophils % 73.7; Platelet Count 293 10^3/uL (130-400); RBC 5.61 10^6/uL (4.36-5.78); RDW 12.1 % (11.8-14.1); RDW-SD 36.9 fL; WBC 9.42 10^3/uL (4.4-10.8)
[2023-09-24 20:16] LABS: ALT 66 U/L (16-63); AST 33 U/L (15-37); Albumin 4.6 g/dL (3.4-5.0); Alkaline Phosphatase 68 U/L (46-116); Amylase 49 U/L (25-115); Anion Gap 7.1 mmol/L (3-11); BUN 11 mg/dL (7-18); Bilirubin, Total 0.6 mg/dL (0.2-1.0); CO2 29.9 mmol/L (21.0-32.0); CREATININE 1.1 mg/dL (0.70-1.30); Calcium 9.8 mg/dL (8.5-10.1); Chloride 104 mmol/L (98-107); Glucose 123 mg/dL (74-106); Lipase 18 U/L (16-77); Potassium 4.3 mmol/L (3.5-5.1); Sodium 141 mmol/L (136-145); Total Protein 8.2 g/dL (6.4-8.2)
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
--- NOTE | 2023-09-24 21:00 | NUR.NOTE ---
Addendum entered by Bridgette Roberts RN 09/25/23 01:46: Patient had lab work drawn and was given PO tylenol. Pt was waiting for CT imaging. Pt stated to this RN that he wanted to leave to go outside. This RN notified provider who then went to speak with the patient on this matter. Patient signed AMA form and left the treatment area. Original Note: Nursing Note:
== END 2023-09-24 20:51 | disposition left against medical advice (07) ==
PROVIDERS: Emergency Provider Student in an Organized Health Care Education/Training Program; PCP Physician Assistant
DX: S09.8XXA Other specified injuries of head, initial encounter (principal); F17.210 Nicotine dependence, cigarettes, uncomplicated; V43.62XA Car passenger injured in collision with other type car in traffic accident, initial encounter; Z53.29 Procedure and treatment not carried out because of patient's decision for other reasons
CPT/HCPCS: 36415; 80053; 83690; 96374; 99283; 81003; 82150; 83735; 85025; 99282

== ENCOUNTER 2023-12-03 16:28 | Outpatient (REF) | payer MEDICARE, MEDICAID, SELFPAY ==
[2023-12-03 17:35] LABS: *AMPHETAMINES SCREEN URINE Negative (Negative); *BARBITURATES SCREEN URINE Negative (Negative); *BENZODIAZEPINES SCREEN URINE Negative (Negative); Cannabinoids THC Negative (Negative); Cocaine Screen,Urine Negative (Negative); METHADONE URINE SCREEN Negative (Negative); OPIATES URINE SCREEN Negative (Negative); Tricyclic Antidepressants Negative (Negative)
[2023-12-08 07:52] LABS: Xylazine, Confirmation Urine Negative ng/mL (<50)
[2023-12-10 06:39] LABS: Fentanyl Interpretation Negative.; Fentanyl by LC-MS/MS Not Detected; Norfentanyl by LC-MS/MS Not Detected
[2023-12-10 14:59] LABS: Buprenorphine 127.9 ng/mL (Cutoff: 5.0); Norbuprenorphine 1289.9 ng/mL (Cutoff: 2.5)
== END 2023-12-03 16:29 | disposition home or self-care (01) ==
LOC: LBN 16:28
PROVIDERS: PCP Physician Assistant; Visit Provider Nurse Practitioner Psychiatric/Mental Health
DX: F11.20 Opioid dependence, uncomplicated (principal); Z79.899 Other long term (current) drug therapy
CPT/HCPCS: 80307; 80348; 80375; 80354

== ENCOUNTER 2024-08-23 14:43 | Outpatient (REF) | payer MEDICARE, MEDICAID, SELFPAY ==
[2024-08-29 12:50] LABS: Amphetamine Negative ng/mL (Cutoff: 25); Amphetamines Interpretation Negative.; MDA (Ecstasy Metabolite) Negative ng/mL (Cutoff: 25); MDMA (Ecstasy) Negative ng/mL (Cutoff: 25); Methamphetamine Negative ng/mL (Cutoff: 25); Phentermine Negative ng/mL (Cutoff: 25); Pseudoephedrine/Ephedrine Negative ng/mL (Cutoff: 25)
== END 2024-08-23 14:44 | disposition home or self-care (01) ==
LOC: NCHCN 14:43
PROVIDERS: PCP Physician Assistant; Visit Provider Physician Assistant
DX: F11.20 Opioid dependence, uncomplicated (principal)
CPT/HCPCS: 80324

== ENCOUNTER 2025-04-19 01:18 | Emergency (ER) | payer MEDICARE, MEDICAID, SELFPAY ==
[2025-04-19 01:23] VITALS: BP 154/107; PULSE 82; RESP 16; TEMP 36.4; O2SAT 95
--- NOTE | 2025-04-19 01:37 | ED.GENADUL_ITS ---
Discharge Plan Disposition Patient Disposition: Home Condition: Good Discharge Details Clinical Impression: Pain, dental Primary Care Provider: Artem Medel ED Provider: Josesito Ovalle Home Meds and New Rx's Prescriptions: New clindamycin HCl 150 mg capsule 450 mg PO Q6H 7 Days Qty: 84 0RF No Action buprenorphine-naloxone 8-2 mg film 3 film sublingual DAILY Patient Comments: DISSOLVE 3 FILMS UNDER THE TONGUE EVERY DAY methylphenidate HCl [Ritalin] 20 MG tablet 20 mg PO BID ibuprofen 600 MG tablet 600 mg PO Q6H PRN (Reason: Pain) Qty: 20 0RF ondansetron HCl 4 mg tablet 4 mg PO BID PRN (Reason: nausea and vomiting) Qty: 4 0RF Discharge Instructions Instructions: Dental Pain ED Additional Instructions: Please take 800 mg of ibuprofen every 6 hours and 1000 mg of Tylenol every 6 hours to help with the inflammation and pain. These are the maximum doses. Please take the antibiotic as directed to help with the infection in your tooth. Please use the dental list that we have provided to contact the dentist for prompt follow-up and evaluation for tooth removal. If you notice any worsening of your symptoms, or any new symptoms such as difficulty swallowing, difficulty breathing, vomiting, diarrhea, fever, chills, shortness of breath, chest pain, numbness, weakness, or fainting , please return immediately to the emergency department for reevaluation. Please follow up with your primary care provider as soon as possible for reassessment and reevaluation. As always, it was a pleasure participating in your medical care today. Referrals: Artem Medel [Primary Care Provider] - [facility] General Date/Time Provider Initiated Documentation: 04/19/25 01:25 . HPI Narrative: 34-year-old male with a past medical history of buprenorphine use, and dental caries presents today for left upper tooth pain. Patient has a history of known dental caries and severe tooth degradation in his upper left frontal teeth. Last 24 hours some of those teeth broke. Since then he has had significant pain. He has not reached out to a dentist. He took Tylenol about 12 hours ago which only improved his symptoms minimally. He admits to some earlier drainage from the teeth. He denies fever or chills. Pain is notable. No other complaints at this time. Related Data Home Medications ?Medication ?Instructions ?Recorded ?Confirmed ibuprofen 600 mg tablet 600 mg PO Q6H PRN Pain #20 tabs 11/08/17 04/19/25 methylphenidate HCl 20 mg tablet 20 mg PO BID 11/08/17 04/19/25 (Ritalin) ondansetron HCl 4 mg tablet 4 mg PO BID PRN nausea and 02/08/22 04/19/25 vomiting #4 tabs buprenorphine 8 mg-naloxone 2 mg 3 film sublingual DAILY 04/19/25 04/19/25 sublingual film clindamycin HCl 150 mg capsule 450 mg (3 x 150 mg) PO Q6H 7 days 04/19/25 #84 caps Previous Rx's ?Medication ?Instructions ?Recorded ibuprofen 600 mg tablet 600 mg PO Q6H PRN Pain #20 tabs 11/08/17 ondansetron HCl 4 mg tablet 4 mg PO BID PRN nausea and 02/08/22 vomiting #4 tabs clindamycin HCl 150 mg capsule 450 mg (3 x 150 mg) PO Q6H 7 days 04/19/25 #84 caps Allergies Allergy/AdvReac Type Severity Reaction Status Date / Time clindamycin Allergy Unknown Unknown Verified 04/19/25 01:26 Penicillins Allergy Skin Rash Verified 04/19/25 01:26 General Stated Complaint: DentalOral LIANNA: 4 Exam Narrative Exam Narrative: 1.Const: Well-nourished, Well-developed, appearing stated age 2.Eyes: PERRL, no conjunctival injection, and symmetrical lids. 3.ENT: Atraumatic external nose and ears. Moist MM. Neck: Symmetric, trachea midline, No thyromegaly. Notably poor dentition throughout, particularly in the frontal upper teeth, with notably fragmented and fractured teeth with severe disease of the teeth. No periapical abscesses. No evidence of Ludewig's angina. No difficulty swallowing breathing or drinking. Patient controlling his secretions well. 4.CVS: +S1/S2, Peripheral pulses 2+ and equal in all extremities. Brisk capillary refill in all extremities. 5.RESP: Unlabored respiratory effort. Clear to auscultation bilaterally. No wheezes rales or rhonchi 6.GI: Soft, Nontender/Nondistended, No hepatosplenomegaly. No guarding or rebound. 7.MSK: Normocephalic/Atraumatic, Extremities w/o deformity or ttp No cyanosis or clubbing, Normal movement of all extremities 8.Skin: Warm, Dry. No rashes or lesions. 9.Neuro: emergency medicine physician II-XII grossly intact. Sensation grossly intact, no focal neurologic deficits. 10.Psych: (AAO) x3. Appropriate mood and affect Course Vital Signs Vital signs: Vital Signs Temperature 36.4 C L 04/19/25 01:23 Pulse 82 04/19/25 01:23 Respiratory Rate 16 04/19/25 01:23 Blood Pressure 154/107 H 04/19/25 01:23 Pulse Oximetry 95 04/19/25 01:23 Temperature 36.4 C L 04/19/25 01:23 Pulse 82 04/19/25 01:23 Respiratory Rate 16 04/19/25 01:23 Blood Pressure 154/107 H 04/19/25 01:23 Blood Pressure Position Sitting 04/19/25 01:23 Pulse Oximetry 95 04/19/25 01:23 Oxygen Delivery Method Room Air 04/19/25 01:23 Oxygen Flow Rate 0 04/19/25 01:23 Pain Level 10 04/19/25 01:23 Medical Decision Making 34-year-old male with a past medical history of buprenorphine use, and dental caries presents today for left upper tooth pain. Patient has a history of known dental caries and severe tooth degradation in his upper left frontal teeth. Last 24 hours some of those teeth broke. Since then he has had significant pain. He has not reached out to a dentist. He took Tylenol about 12 hours ago which only improved his symptoms minimally. He admits to some earlier drainage from the teeth. He denies fever or chills. Pain is notable. No other complaints at this time. Exam demonstrates Notably poor dentition throughout, particularly in the frontal upper teeth, with notably fragmented and fractured teeth with severe disease of the teeth. No periapical abscesses. No evidence of Ludewig's angina. No difficulty swallowing breathing or drinking. Patient controlling his secretions well. Patient demonstrates evidence consistent with dental caries, likely infection with tooth decay. Patient has an allergy to penicillins which cause skin rash, he also states he has an allergy to clindamycin which cause diarrhea, but no rash or anaphylaxis. This appears to be a side effect, and not in actual allergy or allergic reaction. Discussed risks and benefits of utilizing clindamycin as he would not tolerate penicillins or amoxicillin. Understanding the risks and benefits patient has consented to starting clindamycin. Recommend taking a probiotic to help prevent diarrhea. Will give Toradol and Tylenol here. Recommend continued NSAID use. Recommended reaching out to [facility], and we also gave him a dental sheet for local dentist. We did offer a dental block as well but the patient notably declined. Discussed red flags for which to return. I have extensively reviewed the treatment plan and discharge instructions with the patient. I have addressed all patient concerns at this time. The patient was made aware of what symptoms to monitor for that would warrant a return to the emergency department. Discussed the plan with the patient, they demonstrate verbal understanding and agreement with our assessment and plan at this time. The documentation in this chart was dictated using [employer] dictation software. Please excuse any dictation errors. Quality:SDOH Health Related Social Needs: No Data to Display PFSH All Active Problems (Updated 04/19/25 @ 01:39 by Josesito Ovalle DO) Pain, dental (Acute) Social History Smoking/Tobacco Use Status: Current every day Smoking risk assessment performed?: Yes Alcohol Intake: never Drug use: Daily Substance use type: heroin Do you feel safe at home: Yes Do you feel safe in your relationship?: Yes
[2025-04-19 01:53] VITALS: O2SAT 100
[2025-04-19] MEDS: Clindamycin 150 MG CAP, 12 CAPS/BTL 450 MG PO (01:54)
[2025-04-19] MEDS: Acetaminophen 500 MG TAB 1000 MG PO (01:54)
[2025-04-19] MEDS: Ketorolac 30 MG/ML VIAL IM (01:55)
== END 2025-04-19 02:01 | disposition home or self-care (01) ==
LOC: ER 01:54
PROVIDERS: Emergency Provider Student in an Organized Health Care Education/Training Program; PCP Physician Assistant
DX: R68.84 Jaw pain (principal); K08.89 Other specified disorders of teeth and supporting structures
CPT/HCPCS: 99284; 99283; 96372; J1885

== ENCOUNTER 2025-05-07 12:08 | Emergency (ER) | payer MEDICARE, MEDICAID, SELFPAY ==
[2025-05-07 12:14] VITALS: BP 122/84; PULSE 58; RESP 14; TEMP 36.5; O2SAT 95
--- NOTE | 2025-05-07 12:29 | W.ED.GENAD ---
Discharge Plan Disposition Patient Disposition: Transfer-Acute Inpatient Care Specific Acute Inpt Facility: [facility] Condition: Stable Discharge Details Clinical Impression: Scleral disorder, Pain in right eye, Visual changes Primary Care Provider: Artem Medel ED Provider: Josesito Wong [facility] Meds and New Rx's Prescriptions: Continued buprenorphine-naloxone 8-2 mg film 3 film sublingual DAILY Patient Comments: DISSOLVE 3 FILMS UNDER THE TONGUE EVERY DAY methylphenidate HCl [Ritalin] 20 MG tablet 20 mg PO BID ibuprofen 600 MG tablet 600 mg PO Q6H PRN (Reason: Pain) Qty: 20 0RF ondansetron HCl 4 mg tablet 4 mg PO BID PRN (Reason: nausea and vomiting) Qty: 4 0RF Discharge Instructions Referrals: Artem Medel [Primary Care Provider, Medicine] HPI General Date/Time Provider Initiated Documentation: 05/07/25 12:29. HPI Narrative: 34 year-old male presents to ED today by POV/ambulating with a chief complaint of R eye redness and pain with onset for the past week, with clear discharge after having a sinus infection- endorses severe GOODE behind R eye. Quality described as barely able to open his R eye- refused visual acuity exam at triage, states pain with eye movement, no radiation to loss of vision, OS symptoms, cough, shortness of breath, facial numbness or paralysis, trauma to eye, chest pain. Severity is described as 10/10. Palliating factors include nothing specific attempted- better with sunglasses on. Provoking factors include nothing specific. Patient not anticoagulated. Related Data Home Medications ?Medication ?Instructions ?Recorded ?Confirmed ibuprofen 600 mg tablet 600 mg PO Q6H PRN Pain #20 tabs 11/08/17 05/07/25 methylphenidate HCl 20 mg tablet 20 mg PO BID 11/08/17 05/07/25 (Ritalin) ondansetron HCl 4 mg tablet 4 mg PO BID PRN nausea and 02/08/22 05/07/25 vomiting #4 tabs buprenorphine 8 mg-naloxone 2 mg 3 film sublingual DAILY 04/19/25 05/07/25 sublingual film Previous Rx's ?Medication ?Instructions ?Recorded ibuprofen 600 mg tablet 600 mg PO Q6H PRN Pain #20 tabs 11/08/17 ondansetron HCl 4 mg tablet 4 mg PO BID PRN nausea and 02/08/22 vomiting #4 tabs Allergies Allergy/AdvReac Type Severity Reaction Status Date / Time clindamycin Allergy Unknown Unknown Verified 05/07/25 12:17 Penicillins Allergy Skin Rash Verified 05/07/25 12:17 General Stated Complaint: EyeProblem LIANNA: 4 Review of Systems All systems reviewed & are unremarkable except as noted in HPI and below Exam Narrative Exam Narrative: GENERAL APPEARANCE: Well-nourished, non-toxic, awake and alert, atraumatic, no acute distress. SKIN: Warm, pink, dry, intact, without rashes/lesions/ulcerations. HEAD: Normocephalic, atraumatic, normal hair distribution for gender/age. EYES: Normal conjunctiva, no exudates on lids/lashes, erythematous OD- starkly so at 9 o'clock position, states he can barely see out of his R eye- refuses visual acuity test, pain with EOM movement, benign OS, no bulging eye on gross appearance, no hyphema, no purulent discharge, scleral injection is quite significant, IOP 13 OD, WNL on O, no dendritic lesions or corneal abrasions/ulcers seen, no hazy appearance of uveitis on fluorscein exam, pupil PERRLA bilat. ENT: Nares patent, no circumoral cyanosis, no facial swelling NECK: Supple, trachea midline, painless cervical ROM. LUNGS/CHEST: Non-labored respirations, normal A/P diameter, symmetrical expansion, no chest wall deformity HEART (CV/PV): No peripheral edema, no JVD. ABDOMEN: Soft, non-distended, no guarding. MSK: Normal ROM, no swelling/deformity to bilateral UEs or LEs, moving all extremities without weakness, no cyanosis, spine midline without tenderness, normal curvature. NEURO: Mental Status AAOx4 - alert to person, place, time, events No facial droop, no forehead involvement. Motor: No focal weakness - strength 5/5 in bilateral UEs and LEs, proximal and distal, symmetric. Sensory: sensation intact to light touch globally. Gait normal: patient ambulated without ataxia into ED room. PSYCH: euthymic, cooperative, pleasant, appropriate speech Course Vital Signs Vital signs: Vital Signs Temperature 36.5 C 05/07/25 12:14 Pulse 58 L 05/07/25 12:14 Respiratory Rate 14 05/07/25 12:14 Blood Pressure 122/84 05/07/25 12:14 Pulse Oximetry 95 05/07/25 12:14 Temperature 36.5 C 05/07/25 12:14 Temperature Source Oral 05/07/25 12:14 Pulse 58 L 05/07/25 12:14 Respiratory Rate 14 05/07/25 12:14 Blood Pressure 122/84 05/07/25 12:14 Blood Pressure Position Supine 05/07/25 12:14 Pulse Oximetry 95 05/07/25 12:14 Oxygen Delivery Method Room Air 05/07/25 12:14 Oxygen Flow Rate 0 05/07/25 12:14 Pain Level 10 05/07/25 12:14 Medical Decision Making This dictation utilizes [id number] dictation software and may contain unedited grammatical errors. 34 year-old male presents to ED today by POV/ambulating with a chief complaint of R eye redness and pain with onset for the past week, with clear discharge after having a sinus infection- endorses severe GOODE behind R eye. Quality described as barely able to open his R eye- refused visual acuity exam at triage, states pain with eye movement, no radiation to loss of vision, OS symptoms, cough, shortness of breath, facial numbness or paralysis, trauma to eye, chest pain. Severity is described as 10/10. Palliating factors include nothing specific attempted- better with sunglasses on. Provoking factors include nothing specific. Patients' medical history: Dental pain. Family and social history: Noncontributory. States he has never used intravenous route for drugs, but has used street drugs prison. Pertinent exam findings / vital signs include erythematous OD- starkly so at 9 o'clock position, states he can barely see out of his R eye- refuses visual acuity test, pain with EOM movement, benign OS, no bulging eye on gross appearance, no hyphema, no purulent discharge, scleral injection is quite significant, IOP 12//13 OD, WNL on O, no dendritic lesions or corneal abrasions/ulcers seen, no hazy appearance of uveitis on fluorscein exam. Differential / pathologies of concern include scleritis, episcleritis, endophthalmitis, syphillus, severe conjunctivitis, orbital cellulitis. Diagnostic studies of: -CBC, CMP, Lactate, CRP/ESR, CT Orbits w Contrast. -CBC benign, no leukocytosis -CMP negative -Lactate WNL -CRP/ESR neg -CT orbits without mass or cellulitis RPR, CMV other pathologies would be delayed days here, send-outs. Interventions of: -2 drops tetracaine. 1g PO APAP. -Consulted with [facility] Ophthalmology, recommend ED to ED transfer for ophtho exam. -Accepted by Dr. Irene at [facility] @ 1515 ED Course/Assessment/Plan: 34-year-old male presents with severe right eye pain for a week, has history of dental infections as well as drug use, states he had some kind of sinus infection endorses that he is having significant difficulty seeing out of his right eye and has goins erythema in the sclera, states severe headaches behind this eye. I am concerned for scleritis or even endophthalmitis or a very severe conjunctivitis, I did rule out orbital cellulitis by CT he has no elevated inflammatory markers though that does not totally rule out some kind of inflammatory scleritis, he has no necrotizing appearance or nodular appearance of the sclera, I discussed with ophthalmology and they would like him to be transferred for further diagnosis, there is many pathologies this could be and some of them require advanced testing like RPR, HIV, other serologies that are send outs at this facility which would pose potential vision loss consequences for this patient, patient was amicable to this plan and was sent out by ambulance ED to ED, given 1 g oral Tylenol prior to transfer. Disposition of Scleral Disorder, Pain in Right Eye, Visual Changes. Patient verbalized understanding of the plan and return to ED criteria and engaged in shared decision making. Medical Records Medical records reviewed: Yes I reviewed the patient's medical records. PFSH All Active Problems (Updated 05/07/25 @ 15:51 by CHARITY Wells) Visual changes (Acute) Pain in right eye (Acute) Scleral disorder (Acute) Pain, dental (Acute) Social History Smoking/Tobacco Use Status: Current every day Smoking risk assessment performed?: Yes Alcohol Intake: never Drug use: Daily Substance use type: heroin Do you feel safe at home: Yes Do you feel safe in your relationship?: Yes
--- NOTE | 2025-05-07 12:42 | DI.CT_ITS ---
Exam(s) CT ORBITS W EXAM: CT ORBITS W CLINICAL HISTORY: eye pain with movement, OD erythematous. TECHNIQUE: Imaging Protocol: Axial computed tomography images with coronal and sagittal reformatted images were created and reviewed CONTRAST MATERIAL: Intravenous: Omnipaque 350 Contrast volume:100mL COMPARISON: CT HEAD WITHOUT CONTRAST from 03/28/2018 FINDINGS: Globes: The anterior and posterior chambers are intact. Optic Nerves: Normal. Extraocular muscles: Normal. Retrobulbar fat: Normal. Orbital barnett: No definite fracture is noted. Superior ophthalmic veins: Normal. Sinuses: Unremarkable. There is a right middle turbinate rommel bullosa. The nasal septum deviates to the left. Soft Tissues: The visualized intracranial structures are unremarkable. IMPRESSION: 1. Unremarkable CT scan of the orbits. There is no evidence of an orbital abscess or mass. 2. Findings were discussed with Josesito Wong at 2:50 p.m. on 05/07/2025. RADIATION DOSE DELIVERED: 212.75mGy.cm Total DLP 212.75mGy.cm Total DLP DATA REPOSITORY: All CT scans at this facility are submitted to the National Radiology Data Registry (NRDR) Dose Index Registry (DIR) with the [employer] (A[employer]). RADIATION OPTIMIZATION: All CT scans at this facility use at least one of these dose optimization techniques: automated exposure control; mA and/or kV adjustment per patient size (includes targeted exams where dose is matched to clinical indication); or iterative reconstruction.
[2025-05-07 13:09] LABS: Lactate 1.6 mmol/L (<or=2.0)
[2025-05-07 13:10] LABS: Abs Immature Grans 0.03 10^3/uL (0.0-0.06); Absolute Basophil Count 0.06 10^3/uL (0.0-0.2); Absolute Eosinophil Count 0.19 10^3/uL (0.0-0.7); Absolute Monocyte Count 0.53 10^3/uL (0.1-0.8); Absolute Neutrophil Count 2.88 10^3/uL (1.2-6.7); Basophils % 1.1 %; Eosinophils % 3.5 %; HCT 46.5 % (40.0-50.0); HGB 15.7 g/dL (13.5-17.5); Immature Grans % 0.5 %; Lymphocytes % 32.8 %; MCH 28.8 pg (27.0-33.0); MCHC 33.8 % (32.0-36.0); MCV 85 fL (80-95); MPV 9.6 fL (8.0-11.0); Monocytes % 9.7 %; Neutrophils % 52.4 %; Platelet Count 244 10^3/uL (130-400); RBC 5.46 10^6/uL (4.36-5.78); RDW-SD 37.1 fL; WBC 5.49 10^3/uL (4.4-10.8)
[2025-05-07 13:27] LABS: ALT 69 U/L (16-63); AST 30 U/L (15-37); Albumin 4.2 g/dL (3.4-5.0); Alkaline Phosphatase 85 U/L (46-116); Anion Gap 7.2 mmol/L (3-11); BUN 13 mg/dL (7-18); Bilirubin, Total 0.7 mg/dL (0.2-1.0); C-Reactive Protein < 0.50 mg/dL (<or=0.5); CO2 30.8 mmol/L (21.0-32.0); CREATININE 0.9 mg/dL (0.70-1.30); Chloride 103 mmol/L (98-107); Estimated GFR 114.22 (mL/min/1.73m2); Glucose 148 mg/dL (74-106); Potassium 3.9 mmol/L (3.5-5.1); Sodium 141 mmol/L (136-145); Total Protein 7.7 g/dL (6.4-8.2)
[2025-05-07] MEDS: Normal Saline - Diluent 50 ML VIAL IJ (14:15)
[2025-05-07] MEDS: Omnipaque 350 MG/ML 100 ML BTL IJ (14:17)
[2025-05-07 14:43] LABS: ESR 2 mm/hr (0-15)
[2025-05-07 15:44] VITALS: BP 118/74; PULSE 67; TEMP 36.4
[2025-05-07] MEDS: Erythromycin Ophth Oint 3.5 GM TUBE OD (15:58)
[2025-05-07] MEDS: Acetaminophen 500 MG TAB 1000 MG PO (16:42)
== END 2025-05-07 17:05 | disposition short-term general hospital (02) ==
PROVIDERS: Emergency Provider Physician Assistant; PCP Physician Assistant
DX: H15.9 Unspecified disorder of sclera (principal); H57.11 Ocular pain, right eye; H53.9 Unspecified visual disturbance; J34.89 Other specified disorders of nose and nasal sinuses; J34.2 Deviated nasal septum; F17.210 Nicotine dependence, cigarettes, uncomplicated
CPT/HCPCS: 80053; 85652; 99285; 70481; 83605; 85025; 86140; 99284; J3490

== ENCOUNTER 2025-09-08 00:20 | Emergency (ER) | payer MEDICARE, MEDICAID, SELFPAY ==
--- NOTE | 2025-09-07 23:45 | RT.EKG_ITS ---
APPROVED REPORT Exam: Resting ECG Reason for Exam: chest pain Patient Location: E HR:94 bpm ECG Measurements Heart Rate 94 AXIS WI 157 P 49 QRSd 96 QRS 43 QT 342 T 26 QTc 428 Conclusion Sinus rhythm...normal P axis, V-rate 60- [address] segment or T wave abnormalities to suggest occlusive OK
[2025-09-08] VITALS (22 sets, daily range): BP systolic 117–133; BP diastolic 81–94; PULSE 73–100; RESP 12–23; TEMP 36; O2SAT 92–98
--- NOTE | 2025-09-08 00:18 | ED.GENADUL_ITS ---
Discharge Plan Disposition Patient Disposition: Home Condition: Good Discharge Details Clinical Impression: Chest pain, Vomiting Primary Care Provider: Artem Medel ED Provider: Renate Andersen Home Meds and New Rx's Prescriptions: New ondansetron 4 mg tablet,disintegrating 4 mg PO Q8H PRNQty: 7 0RF Continued buprenorphine-naloxone 8-2 mg film 3 film sublingual DAILY Patient Comments: DISSOLVE 3 FILMS UNDER THE TONGUE EVERY DAY methylphenidate HCl [Ritalin] 20 MG tablet 20 mg PO BID ibuprofen 600 MG tablet 600 mg PO Q6H PRN (Reason: Pain) Qty: 20 0RF Discharge Instructions Instructions: Chest Pain, Adult ED, Nausea and Vomiting, Adult ED Additional Instructions: -Your bloodwork and EKG are all reassuring. We are not sure what is causing your pain- it may be acid reflux due to your vomiting. You can try taking antacids over the counter to see if that helps; follow the directions on the bottle. -You can take ondansetron up to every 8 hours as needed for vomiting. -Call your primary care doctor in the morning to schedule an appointment to be seen within the following 72 hours to follow up on your visit here. Given your cardiac history, it is very important that you follow up with them because we can not say for sure that your symptoms are not due to a heart problem. -Return to the emergency department for new or worsening symptoms including new/different/worse chest pain, difficutly breathing, inability to keep down fluids, feeling like you are going to pass out, or if you have any other concerns. HPI General Mode of arrival: EMS . Date/Time Provider Initiated Documentation: 09/08/25 00:22 . Limitations to Documentation: no limitations . Information obtained by: patient and EMS . HPI Narrative: 34yo M presenting with nausea, vomiting, and chest pain. Has had N/V for the past three days as well as mild cough and rhinnorhea; family at home with similar symptoms. Nonbloody nonbilious, no abdominal pain, consitpation, or diarrhea. Today around noon developed sharp substernal chest pain which has been constant and worsening since then. Does not radiate. No provoking or alleviating factors. Not pleuritic. Has never had pain like this before. States that he had a 'mid heart attack' when he was in his 20's, cannot further clarify this and states he has never seen a swing grinder in the office or taken any medications for his heart. No history of blood clots. He has also had some RLE calf pain for several weeks which is constant and worse with exertion. Otherwise in his usual state of health with no fevers, chills, rash, dysuria, hematuria, back pain, or other concerns. Related Data Home Medications ?Medication ?Instructions ?Recorded ?Confirmed ibuprofen 600 mg tablet 600 mg PO Q6H PRN Pain #20 t abs 11/08/17 09/08/25 methylphenidate HCl 20 mg tablet 20 mg PO BID 11/08/17 09/08/25 (Ritalin) buprenorphine 8 mg-naloxone 2 mg 3 film sublingual DANII LY 04/19/25 09/08/25 sublingual film ondansetron 4 mg disintegrating 4 mg PO Q8H PRN #7 tab s 09/08/25 tablet Previous Rx's ?Medication ?Instructions ?Recorded ibuprofen 600 mg tablet 600 mg PO Q6H PRN Pain #20 t abs 11/08/17 ondansetron 4 mg disintegrating 4 mg PO Q8H PRN #7 tab s 09/08/25 tablet Allergies Allergy/AdvReac Type Severity Reaction Status Date / Time clindamycin Allergy Unknown Unknown Verified 05/07/25 12:17 Penicillins Allergy Skin Rash Verified 05/07/25 12:17 General LIANNA: 4 Review of Systems Narrative: see HPI Exam Narrative Exam Narrative: General: Alert, well appearing, well nourished, in no acute distress. Head: Normocephalic, atraumatic Neck: Trachea midline, ?Neck supple. ENT: ?MMM.? Cardiac: ?RRR, no murmurs appreciated Resp: No respiratory distress. CTAB. Abd: ?Soft, non-distended, nontender : ?No suprapubic tenderness. Extremities: ?No deformities.? No peripheral edema. Neurologic: GCS 15. ? Moves all extremities freely against gravity Medical Decision Making 34yo M presenting with nausea, vomiting, and chest pain. He has had N/V for the past three days as well as mild cough and rhinnorhea and family at home have similar symptoms; today around noon developed sharp substernal chest pain which has been constant and worsening since then. Vital signs reassuring on arrival. Exam with no distress, heart wtih RRR, lungs CTAB, no abdominal tenderness to suggest pancreatitis or surgical gallbladder pathology (cholecystitis/choledocolithiasis/etc). Cardiac history as provided by patient does not seem to suggest active coronary artery disease (perhaps [id number] in the past?) but I am unable to confirm this; will give 325 of ASA while awaiting results of workup. Received zofran from EMS; will add GI cocktail here as well as tylenol. History and exam not suggest of aortic dissection, esophageal perforation, cholecystitis, pericarditis, perforated peptic ulcer. -EKG on arrival SR, appropriate intervals, no ST segment or T wave abnormalities to suggest occlusive [place] -Labs reviewed as below, CBC reassuring with no leukocytosis or anemia, CMP with no actionable abnormalities, Mg normal, lipase not suggestive of pancreatitis, BNP not suggestive of heart failure, inital troponin 6 with one hour repeat stable at 7 reassuring against ACS, dimer reassuring against pulmonary embolism or DVT (would not pursue further with CT or US). Pt refused covid swab. -CXR independently reviewed; no focal pneumonia or pneumothorax on my view (some patchy bilateral infiltrate suspicious for viral infection), radiology read with no acute findings. On reassessment he reports his symptoms have entirely resolved after medications here. HEART score low risk- 2 for risk factors if pt does have coronary artery disease which is unclear. Would not admit to further pursue ACS or trend troponins. Suspect most likely GI in etiology. Will need close outpatient followup with PCP given his unclear cardiac history. Will prescribe short course of zofran. Discharged home; discharge instructions and strict return precuations were reviewed with patient who verbalized understanding. He reports he has PCP visit scheduled today at 1030 am and I instructed him to make sure to keep this visit and discuss his chest pain and N/V at that time. All questions were answered and he is in full agreement with the plan. Lab Data Lab results reviewed: Yes I reviewed the patient's lab results. Labs: Laboratory Tests Range/Units 09/08/25 09/08/25 00:25 01:50 WBC (4.4-10.8) 10^3/uL 7.27 RBC (4.36-5.78) 10^6/uL 5.33 Hgb (13.5-17.5) g/dL 15.6 Hct (40.0-50.0) % 45.8 MCV (80-95) fL 86 MCH (27.0-33.0) pg 29.3 MCHC (32.0-36.0) % 34.1 RDW (11.8-14.1) % 12.1 Plt Count (130-400) 10^3/uL 270 MPV (8.0-11.0) fL 9.8 Immature Gran % % 0.3 Neutrophils % % 61.2 Lymphocytes % % 26.4 Monocytes % % 8.5 Eosinophils % % 2.8 Basophils % % 0.8 Nucleated RBC % (0.0-0.3) % 0.0 Absolute Neutrophils (1.2-6.7) 10^3/uL 4.45 Absolute Lymphocytes (1.2-3.4) 10^3/uL 1.92 Absolute Monocytes (0.1-0.8) 10^3/uL 0.62 Absolute Eosinophils (0.0-0.7) 10^3/uL 0.20 Absolute Basophils (0.0-0.2) 10^3/uL 0.06 PT (9.1-11.1) sec 10.6 INR (0.9-1.1) 1.1 APTT (20.6-30.2) sec 23.5 D-Dimer (<500) ng/mlFEU 211 Sodium (136-145) mmol/L 143 Potassium (3.5-5.1) mmol/L 3.5 Chloride (98-107) mmol/L 106 Carbon Dioxide (21.0-32.0) mmol/L 27.9 Anion Gap (3-11) mmol/L 9.1 BUN (7-18) mg/dL 7 Creatinine (0.70-1.30) mg/dL 0.8 Est GFR (CKD-EPI 2020) (mL/min/1.73m2) 118.36 Glucose (74-106) mg/dL 111 H Calcium (8.5-10.1) mg/dL 9.0 Magnesium (1.8-2.4) mg/dL 2.0 Total Bilirubin (0.2-1.0) mg/dL 0.6 AST (15-37) U/L 19 ALT (16-63) U/L 60 Alkaline Phosphatase (46-116) U/L 72 Troponin I (<or=76) ng/L 6 7 NT-Pro-B Natriuret Pep (<300) pg/mL 58 Total Protein (6.4-8.2) g/dL 7.2 Albumin (3.4-5.0) g/dL 4.2 Lipase (<78) U/L 16 PFSH All Active Problems (Updated 09/08/25 @ 02:29 by Renate Andersen MD) Vomiting (Acute) Chest pain (Acute) Social History Smoking/Tobacco Use Status: Current every day Tobacco Type: e-cigarettes Smoking risk assessment performed?: Yes Alcohol Intake: never Drug use: Daily Substance use type: heroin Do you feel safe at home: Yes Do you feel safe in your relationship?: Yes
[2025-09-08 00:39] LABS: Abs Immature Grans 0.02 10^3/uL (0.0-0.06); HCT 45.8 % (40.0-50.0); HGB 15.6 g/dL (13.5-17.5); Immature Grans % 0.3 %; MCH 29.3 pg (27.0-33.0); MCHC 34.1 % (32.0-36.0); MCV 86 fL (80-95); MPV 9.8 fL (8.0-11.0); Platelet Count 270 10^3/uL (130-400); RBC 5.33 10^6/uL (4.36-5.78); RDW 12.1 % (11.8-14.1); RDW-SD 37.7 fL; WBC 7.27 10^3/uL (4.4-10.8)
[2025-09-08] MEDS: Aspirin 81 MG CHEW 324 MG CH (00:54)
[2025-09-08 00:55] LABS: INR 1.1 (0.9-1.1); PTT Activated 23.5 sec (20.6-30.2); Prothrombin Time 10.6 sec (9.1-11.1)
[2025-09-08] MEDS: MYLANTA 30 ML, LIDOCAINE 2% VISCOUS UD 15 ML PO (00:55)
[2025-09-08] MEDS: Acetaminophen 500 MG TAB 1000 MG PO (00:58)
[2025-09-08 01:03] LABS: ALT 60 U/L (16-63); AST 19 U/L (15-37); Albumin 4.2 g/dL (3.4-5.0); Alkaline Phosphatase 72 U/L (46-116); Anion Gap 9.1 mmol/L (3-11); BUN 7 mg/dL (7-18); Bilirubin, Total 0.6 mg/dL (0.2-1.0); CO2 27.9 mmol/L (21.0-32.0); Calcium 9.0 mg/dL (8.5-10.1); Chloride 106 mmol/L (98-107); Estimated GFR 118.36 (mL/min/1.73m2); Glucose 111 mg/dL (74-106); Lipase 16 U/L (<78); Magnesium 2.0 mg/dL (1.8-2.4); NT-proBNP 58 pg/mL (<300); Potassium 3.5 mmol/L (3.5-5.1); Sodium 143 mmol/L (136-145); Total Protein 7.2 g/dL (6.4-8.2); Troponin I 6 ng/L (<or=76)
[2025-09-08 01:06] LABS: D-Dimer 211 ng/mlFEU (<500)
[2025-09-08 02:23] LABS: Troponin I 7 ng/L (<or=76)
--- NOTE | 2025-09-08 03:18 | DI.RAD_ITS ---
Exam(s) XR CHEST 2V PA LATERAL EXAM: XR CHEST 2V PA LATERAL CLINICAL HISTORY: Chest pain TECHNIQUE: 2D digital imaging was performed. Two views. COMPARISON: No exams were available for comparison FINDINGS: HEART: Normal size. Aorta: Not dilated. PULMONARY VASCULATURE: Normal. MEDIASTINUM: Unremarkable. LUNGS: Clear. PLEURAL SPACE: No pleural effusion or pneumothorax. BONE:Unremarkable for age. SOFT TISSUES: Unremarkable. IMPRESSION: No acute abnormality. The preliminary [facility] report was reviewed. DATA REPOSITORY: RADIATION DOSE DELIVERED:
--- NOTE | 2025-09-08 03:26 | DI.[facility]_ITS ---
PROCEDURE INFORMATION: Exam: XR Chest Exam date and time: 09/08/2025 3:17 AM Age: 34 years old Clinical indication: Chest pressure; Chest pain TECHNIQUE: Imaging protocol: Radiologic exam of the chest. Views: 2 views. COMPARISON: CR XR CHEST 2V PA LATERAL 09/16/2018 12:29 AM FINDINGS: Lungs: No focal consolidation seen. Pleural spaces: No large pleural effusion seen. Heart/Mediastinum: No cardiomegaly. Bones/joints: No acute abnormality. IMPRESSION: No acute findings to explain reported symptoms. Dictated and Authenticated by: Jennifer Granados MD. Orderin Ganesh Dewitt MD
[2025-09-08] MEDS: Ondansetron O.D.T. 4 MG TABEF, 3 TABS/BTL PO (04:19)
--- NOTE | 2025-09-08 04:21 | NUR.NOTE ---
@ 0305 Pt and refused a Covid swab and continued on with negative comments about the hospital in general and about the ER physician. Pt said he wanted to sign out against medical advice and refused the swab, however ten minutes later he willingly went to Radiology via w/c for a CXR. Returned without incident and once again was placed on Cardiac Monitoring complete with pulse ox & BP. Unfortunately the pt would arbitrarily take different cords or stickers off regardless of requests to maintain intact. Nursing Note:
== END 2025-09-08 04:00 | disposition home or self-care (01) ==
PROVIDERS: Emergency Provider Student in an Organized Health Care Education/Training Program; PCP Physician Assistant
DX: R07.9 Chest pain, unspecified (principal); R11.2 Nausea with vomiting, unspecified; R05.9 Cough, unspecified
CPT/HCPCS: 99284 ×2; 36415; 80053; 83690; 87637; 93005; 71046; 83735; 83880; 84484; 85025; 85379; 85610; 85730; 93010

== ENCOUNTER 2025-10-16 17:26 | Emergency (ER) | payer MEDICARE, MEDICAID, SELFPAY ==
[2025-10-16] VITALS (22 sets, daily range): BP systolic 124–139; BP diastolic 79–102; PULSE 75–123; RESP 18; TEMP 36.6–37.4; O2SAT 92–100
--- NOTE | 2025-10-16 18:08 | ED.GENADUL_ITS ---
Discharge Plan Disposition Patient Disposition: Home Discharge Details Clinical Impression: Peritonsillar abscess Primary Care Provider: Artem Medel ED Provider: Penny Sena Home Meds and New Rx's Prescriptions: New clindamycin HCl [Cleocin HCl] 150 mg capsule 300 mg PO Q6H 14 Days Qty: 112 0RF clindamycin HCl [Cleocin HCl] 300 mg capsule 300 mg PO TID 14 Days Qty: 42 0RF ibuprofen 800 mg tablet 800 mg PO Q8H PRNQty: 20 0RF methylprednisolone [Medrol] 4 mg tablet 4 mg PO DAILY Qty: 21 0RF Rx Instructions: Day 1: Take 2 tablets 3 times a day by mouth Day 2: Take 1 tablet in the morning, 2 tablets in the afternoon, and 2 tablets at bedtime by mouth. Day 3: Take 1 tablet in the morning, 2 tablets in the afternoon, and 1 tablet at bedtime by mouth Day 4: Take 1 tablet 3 times a day by mouth Day 5: Take 1 tablet twice a day by mouth Day 6: Take 1 tablet in the morning clindamycin HCl [Cleocin HCl] 300 mg capsule 300 mg PO Q6H 14 Days Qty: 56 0RF No Action buprenorphine-naloxone 8-2 mg film 3 film sublingual DAILY Patient Comments: DISSOLVE 3 FILMS UNDER THE TONGUE EVERY DAY methylphenidate HCl [Ritalin] 20 MG tablet 20 mg PO BID ibuprofen 600 MG tablet 600 mg PO Q6H PRN (Reason: Pain) Qty: 20 0RF ondansetron 4 mg tablet,disintegrating 4 mg PO Q8H PRNQty: 7 0RF Discharge Instructions Instructions: Peritonsillar Abscess, Adult Additional Instructions: Referral has been placed to [facility] to ENT. Please call first thing in the morning to schedule follow-up appointment. The phone number is [phone] You are being prescribed an antibiotic called clindamycin. Please take 300 mg (2 tablets) every 6 hours for the full 14-day course. I recommend they take this with a probiotic such as Activia yogurt with each dose. You are also being prescribed a course of steroids. Please take according to package instructions. For pain control it is recommended you use ibuprofen 800 mg every 8 hours for discomfort. You may also use Tylenol 650 mg every 6 hours for pain. Salt water gargles may also be helpful. Be sure to drink plenty of fluids throughout the day to help stay hydrated. Soups may be a good option. Turn to emergency care if you are not feeling significantly better after 48 hours of antibiotics, have new difficulty swallowing/you muffled voice, difficulty breathing, or unable to stay well-hydrated, or if you are very worried and need to be rechecked again immediately Stand Alone Forms: Portal Information [place] [place], [facility] [facility] HPI General Date/Time Provider Initiated Documentation: 10/16/25 17:38 . HPI Narrative: Ravindra is a 34-year-old male who presents to the emergency department accompanied by his for evaluation of chills, generalized malaise, whitish film on tongue, sore throat, difficulty swallowing, difficulty breathing, and left ear pain radiating down into throat. Reports decreased p.o. intake due to symptoms. Denies recorded fever, chest pain, cough, abdominal pain, change in bowel or bladder function. He reports he is up-to-date with vaccinations. Former IV drug user. Related Data Home Medications ?Medication ?Instructions ?Recorded ?Confirmed ibuprofen 600 mg tablet 600 mg PO Q6H PRN Pain #20 t abs 11/08/17 10/16/25 methylphenidate HCl 20 mg tablet 20 mg PO BID 11/08/17 10/16/25 (Ritalin) buprenorphine 8 mg-naloxone 2 mg 3 film sublingual DANII LY 04/19/25 10/16/25 sublingual film ondansetron 4 mg disintegrating 4 mg PO Q8H PRN #7 tab s 09/08/25 10/16/25 tablet clindamycin HCl 150 mg capsule 300 mg (2 x 150 mg) PO Q6H 14 days 10/16/25 (Cleocin HCl) #112 caps clindamycin HCl 300 mg capsule 300 mg PO Q6H 14 days # 56 caps 10/16/25 (Cleocin HCl) clindamycin HCl 300 mg capsule 300 mg PO TID 14 days # 42 caps 10/16/25 (Cleocin HCl) ibuprofen 800 mg tablet 800 mg PO Q8H PRN #20 tabs 1 12/17/24 methylprednisolone 4 mg tablet 4 mg PO DAILY #21 tabs 10/16/25 (Medrol) Previous Rx's ?Medication ?Instructions ?Recorded ibuprofen 600 mg tablet 600 mg PO Q6H PRN Pain #20 t abs 11/08/17 ondansetron 4 mg disintegrating 4 mg PO Q8H PRN #7 tab s 09/08/25 tablet clindamycin HCl 150 mg capsule 300 mg (2 x 150 mg) PO Q6H 14 days 10/16/25 (Cleocin HCl) #112 caps clindamycin HCl 300 mg capsule 300 mg PO Q6H 14 days # 56 caps 10/16/25 (Cleocin HCl) clindamycin HCl 300 mg capsule 300 mg PO TID 14 days # 42 caps 10/16/25 (Cleocin HCl) ibuprofen 800 mg tablet 800 mg PO Q8H PRN #20 tabs 1 12/17/24 methylprednisolone 4 mg tablet 4 mg PO DAILY #21 tabs 10/16/25 (Medrol) Allergies Allergy/AdvReac Type Severity Reaction Status Date / Time clindamycin Allergy Unknown Unknown Verified 10/16/25 17:37 Penicillins Allergy Skin Rash Verified 10/16/25 17:37 General Stated Complaint: EyeProblem LIANNA: 3 Exam Const General: ill appearing Nutritional Appearance: average body habitus Orientation: alert and oriented x3 HENMT Head: normal to inspection Ears: hearing grossly normal bilaterally, external ears normal and TM's normal bilaterally General nose exam: external nose normal Face and sinus: dry mucous membranes Mouth: muffled voice, oral mucosa abnormal (brown/white thick film on tongue) and restricted motion (unable to fully open mouth) Throat: uvula midline Neck Neck: lymphadenopathy (+cervical and submandibular LAD) and submandibular swelling Resp Effort & Inspection: normal respiratory effort Auscultation: other (Coarse lung sounds throughout) Cardio Rate: tachycardic Rhythm: regular rhythm GI Inspection: normal to inspection Palpation: soft and nontender Course Vital Signs Vital signs: Vital Signs Temperature 37.4 C 10/16/25 17:32 Pulse 123 H 10/16/25 17:32 Respiratory Rate 18 10/16/25 17:32 Blood Pressure 129/88 10/16/25 17:32 Pulse Oximetry 93 10/16/25 17:32 Temperature 37.4 C 10/16/25 17:55 Temperature Source Tympanic 10/16/25 17:55 Pulse 123 H 10/16/25 17:55 Respiratory Rate 18 10/16/25 17:55 Blood Pressure 129/88 10/16/25 17:55 Pulse Oximetry 93 10/16/25 17:55 Pain Level 10 10/16/25 17:55 Medical Decision Making Ravindra is a 34-year-old male who presents to the emergency department accompanied by his for evaluation of chills, generalized malaise, whitish film on tongue, sore throat, difficulty swallowing, difficulty breathing, and left ear pain radiating down into throat. Reports decreased p.o. intake due to symptoms. Denies recorded fever, chest pain, cough, abdominal pain, change in bowel or bladder function. Up-to-date vaccinations, former IV drug user Physical exam remarkable for ill-appearing patient with muffled voice with res tricted opening of mouth. Thick white-brown film noted on tongue. A large white/brown piece of mucus was removed from posterior oropharynx using cotton tip applicators. Cervical and submandibular lymphadenopathy and swelling noted. TMs pearly brown, translucent. Easy work of breathing, coarse lung sounds throughout. Patient is able to sit back and breathe without difficulty. Normal heart sounds, tachycardia noted. Abdomen soft, nondistended, nontender to palpation. DDx includes was not limited to: Ludwigs angina, epiglottitis, peritonsillar or retropharyngeal abscess, strep throat, other viral illness, dehydration, electrolyte imbalance I independently interpreted the following tests: EKG shows normal sinus rhythm, rate 90, no changes consistent with acute ischemia, no QT prolongation noted. CBC notable for leukocytosis, white cell count 14.95. CMP notable for isolated elevated total bilirubin, 1.3 (increased from 0.6 on 09/08/25). COVID/flu/RSV negative. While in the emergency department Ravindra was started on IV antibiotics including azithromycin, metronidazole, and levofloxacin for empiric treatment of diphtheria and possible Evert's angina, as well as vancomycin for MRSA coverage in pt with risk factors. After receiving medications Ravindra reports he is feeling significantly better, he is able to take p.o. without difficulty and voice clarity has improved. CT soft tissue neck performed, significant for bilateral peritonsillar abscesses measuring 20 mm on the left and 8 mm on the right. [place], [place] [facility] [place] She recommends outpatient referral to ENT, as these do not need to be emergently drained. She recommends outpatient referral to ENT, with return to ED if symptoms not significantly improved after 24 to 48 hours of antibiotics. Recommend outpatient clindamycin and Medrol Dosepak. I did review allergies with Ravindra, who has hives listed for both clindamycin and penicillin. He reports that he does have a history of anaphylaxis to penicillin, but is able to tolerate clindamycin, just says sometimes he gets a bit itchy. Ravindra has been able to tolerate p.o. without difficulty, says that he is feeling significantly better. Will discharge home with p.o. clindamycin 300 mg every 6 hours, Medrol dose pack, and pain control with ibuprofen and Tylenol. Reviewed discharge instructions with patient, including red flags indicate need for return to emergency care. Referral placed [place] [facility] [place] patient request Imaging Data Radiologic Study: Radiologist's impression: PROCEDURE INFORMATION: Exam: CT Neck With Contrast Exam date and time: 10/16/2025 7:09 PM Age: 34 years old Clinical indication: Other: Throat swelling, hoarse voice, concern for ludwigs TECHNIQUE: Imaging protocol: Computed tomography of the neck with contrast. Radiation optimization: All CT scans at this facility use at least one of these dose optimization techniques: automated exposure control; mA and/or kV adjustment per patient size (includes targeted exams where dose is matched to clinical indication); or iterative reconstruction. Contrast material: OMNIPAQUE 350; Contrast volume: 100 ml; Contrast route: INTRAVENOUS (IV); COMPARISON: CT ORBITS W 05/07/2025 2:15 PM FINDINGS: Salivary glands: Normal. Glands are normal in size. Pharynx: There is significant swelling and enhancement of the bilateral palatine tonsils compatible with acute tonsillitis. Irregular partially loculated appearing 20 mm fluid collection in the left tonsillar bed compatible with peritonsillar abscess. 8 mm fluid collection in the right tonsillar bed also suggestive of small peritonsillar abscess. Larynx: Unremarkable. Epiglottis is normal. Thyroid: Normal. No enlarged or calcified nodules. Trachea: Visualized trachea is unremarkable. Lungs: Unremarkable as visualized. Lymph nodes: There is moderate bilateral jugular chain lymphadenopathy. Scattered mildly prominent lymph nodes seen of the other cervical levels. Bones/joints: Unremarkable. No acute fracture. Soft tissues: Unremarkable. No significant soft tissue swelling. IMPRESSION: Significant findings of bilateral tonsillitis with bilateral peritonsillar abscesses measuring 20 mm on the left and 8 mm on the right [facility] All Active Problems (Updated 10/16/25 @ 22:11 by Penny Ramirez) Peritonsillar abscess (Acute) Social History Smoking/Tobacco Use Status: Current every day Tobacco Type: e-cigarettes Smoking risk assessment performed?: Yes Alcohol Intake: never Drug use: Daily Substance use type: heroin Do you feel safe at home: Yes Do you feel safe in your relationship?: Yes
--- NOTE | 2025-10-16 18:30 | DI.CT_ITS ---
Exam(s) CT NECK W EXAM: CT NECK W INDICATION: throat swelling, hoarse voice, concern for ludwigs. COMPARISON: No exams were available for comparison TECHNIQUE: FINDINGS: VISUALIZED PARANASAL SINUSES: Unremarkable. NASOPHARYNX: Unremarkable OROPHARYNX: There is gross swelling of the palatine tonsils with bilateral tonsillar abscesses. The larger is on the left side measuring approximately 2 x 2 by 2.5 cm. Significantly smaller on the on the right side although there appear to be conglomeration of hypodense areas in the enlarged right tonsil. Uvula is relatively midline. High risk here for developing retropharyngeal abscess. Soft tissue swelling extends caudally towards the hypopharynx. A[place]LA DENTAL: Dental caries but without dental abscess. HYPOPHARYNX: Free edge of the epiglottis appears slightly thickened. Airway at this level is significantly narrowed although this may be related to phase of respiration. VOCAL CORDS: Unremarkable. No masses evident. Subglottic airway appears unremarkable. THYROID GLAND: Unremarkable. Normal size and no obvious nodules. SALIVARY GLANDS: Unremarkable. No significant findings in the parotid and submandibular glands. LYMPH NODES: There are enlarged reactive lymph nodes on both sides the neck- jugular chains. OTHER: VISUALIZED LUNG APICES: No infiltrates nor ominous nodules. IMPRESSION: 1. Severe bilateral tonsillitis with bilateral peritonsillar abscesses, larger on the left side where the abscess measures 2 x 2 x 2.5 cm. The inflamed enhancing tissue extends somewhat caudally towards the hypopharynx. 2. There are multiple enlarged reactive lymph nodes in both sides the neck. Preliminary virtual Radiology report was reviewed RADIATION DOSE DELIVERED: 375.62mGy.cm Total DLP DATA REPOSITORY: All CT scans at this facility are submitted to the National Radiology Data Registry (NRDR) Dose Index Registry (DIR) with the [employer] ([employer]). RADIATION OPTIMIZATION: All CT scans at this facility use at least one of these dose optimization techniques: automated exposure control; mA and/or kV adjustment per patient size (includes targeted exams where dose is matched to clinical indication); or iterative reconstruction.
--- NOTE | 2025-10-16 18:30 | RT.EKG_ITS ---
APPROVED REPORT Exam: Resting ECG Reason for Exam: evaluate QTc Patient Location: E HR:90 bpm ECG Measurements Heart Rate 90 AXIS DE 152 P 47 QRSd 99 QRS 35 QT 349 T 25 QTc 427 Conclusion Sinus rhythm...normal P axis, V-rate 60- 99 No STEMI
[2025-10-16] MEDS: Normal Saline 1,000 ML 1000 ML IV (18:36)
[2025-10-16] MEDS: Ketorolac 15 MG/ML VIAL IVP (18:37)
[2025-10-16 18:43] LABS: Abs Immature Grans 0.09 10^3/uL (0.0-0.06); HCT 52.0 % (40.0-50.0); HGB 17.8 g/dL (13.5-17.5); Immature Grans % 0.6 %; MCH 28.6 pg (27.0-33.0); MCHC 34.2 % (32.0-36.0); MCV 84 fL (80-95); MPV 9.8 fL (8.0-11.0); Platelet Count 312 10^3/uL (130-400); RBC 6.23 10^6/uL (4.36-5.78); RDW 11.6 % (11.8-14.1); RDW-SD 34.6 fL; WBC 14.95 10^3/uL (4.4-10.8)
[2025-10-16 19:00] LABS: ALT 24 U/L (10-49); AST 13 U/L (<34); Albumin 5.3 g/dL (3.2-5.0); Alkaline Phosphatase 84 U/L (46-116); Anion Gap 11.5 mmol/L (3-11); BUN 14 mg/dL (9-23); Bilirubin, Total 1.30 mg/dL (0.2-1.2); CO2 26.5 mmol/L (20.0-31.0); Calcium 9.8 mg/dL (8.3-10.6); Chloride 101 mmol/L (98-107); Glucose 129 mg/dL (74-106); Potassium 3.9 mmol/L (3.5-5.1); Sodium 139 mmol/L (136-145); Total Protein 8.9 g/dL (5.7-8.2)
[2025-10-16 19:03] LABS: COVID-19 PCR Negative (Negative); RSV PCR Negative (Negative)
[2025-10-16 19:11] LABS: RBC Morphology Normal
[2025-10-16] MEDS: Normal Saline Flush 10 ML SYR IVP (19:12)
[2025-10-16] MEDS: Omnipaque 350 MG/ML 100 ML BTL IJ (19:13)
[2025-10-16] MEDS: Normal Saline - Diluent 50 ML VIAL IJ (19:13)
[2025-10-16] MEDS: levoFLOXacin 750 MG/150 ML BAG 100 MG IVPB (19:32)
[2025-10-16] MEDS: metroNIDAZOLE 500 MG/100 ML BAG 100 MG IVPB (19:34)
[2025-10-16] MEDS: ACETAMINOPHEN 1,000 MG/100 ML BAG 400 MG IVPB (19:58)
--- NOTE | 2025-10-16 20:06 | DI.VRAD_ITS ---
PROCEDURE INFORMATION: Exam: CT Neck With Contrast Exam date and time: 10/16/2025 7:09 PM Age: 34 years old Clinical indication: Other: Throat swelling, hoarse voice, concern for ludwigs TECHNIQUE: Imaging protocol: Computed tomography of the neck with contrast. Radiation optimization: All CT scans at this facility use at least one of these dose optimization techniques: automated exposure control; mA and/or kV adjustment per patient size (includes targeted exams where dose is matched to clinical indication); or iterative reconstruction. Contrast material: OMNIPAQUE 350; Contrast volume: 100 ml; Contrast route: INTRAVENOUS (IV); COMPARISON: CT ORBITS W 05/07/2025 2:15 PM FINDINGS: Salivary glands: Normal. Glands are normal in size. Pharynx: There is significant swelling and enhancement of the bilateral palatine tonsils compatible with acute tonsillitis. Irregular partially loculated appearing 20 mm fluid collection in the left tonsillar bed compatible with peritonsillar abscess. 8 mm fluid collection in the right tonsillar bed also suggestive of small peritonsillar abscess. Larynx: Unremarkable. Epiglottis is normal. Thyroid: Normal. No enlarged or calcified nodules. Trachea: Visualized trachea is unremarkable. Lungs: Unremarkable as visualized. Lymph nodes: There is moderate bilateral jugular chain lymphadenopathy. Scattered mildly prominent lymph nodes seen of the other cervical levels. Bones/joints: Unremarkable. No acute fracture. Soft tissues: Unremarkable. No significant soft tissue swelling. IMPRESSION: Significant findings of bilateral tonsillitis with bilateral peritonsillar abscesses measuring 20 mm on the left and 8 mm on the right Dictated and Authenticated by: Manuel Hampton MD. Orderin Shabbir Francis MD
[2025-10-16] MEDS: AZITHROMYCIN 500 MG in Normal Saline 250 ML 250 MG IVPB (20:13)
[2025-10-16] MEDS: Dexamethasone 10 MG/ML VIAL IVP (20:18)
[2025-10-16 21:15] LABS: Mono Screening Negative (Negative)
[2025-10-16] MEDS: Clindamycin 150 MG CAP, 12 CAPS/BTL 450 MG PO (22:16)
[2025-10-17 22:31] LABS: HIV-1/2 Ag & Ab Screen Negative (Negative)
== END 2025-10-16 22:20 | disposition home or self-care (01) ==
PROVIDERS: Emergency Provider Nurse Practitioner Family; PCP Physician Assistant
DX: J36 Peritonsillar abscess (principal); F17.290 Nicotine dependence, other tobacco product, uncomplicated
CPT/HCPCS: 36415; 70491; 80053; 87040; 87389; 87637; 93005; 96361; 96365; 96366; 96368; 96375; 99284; 85025; 86308; 87070; 87081; 93010; J0131; J0456; J1100; J1836; J1885; J1956; J3490